=== PATIENT | male | born 1975 | race Caucasian/White ===

== ENCOUNTER 2020-09-17 17:01 | Emergency (ER) | payer OTHER, SELFPAY ==
[2020-09-17 17:12] VITALS: BP 163/86; PULSE 97; RESP 16; TEMP 37.1; O2SAT 97; BMI 34.0
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
--- NOTE | 2020-09-17 19:42 | PC.NURSE ---
PT LAC DERMABONED TOGETHER BY YURY MATTSON. PT LIDODERM returned.
== END 2020-09-17 19:52 | disposition home or self-care (01) ==
PROVIDERS: Emergency Provider Emergency Medicine
DX: S09.90XA Unspecified injury of head, initial encounter (principal); S01.81XA Laceration without foreign body of other part of head, initial encounter; W33.11XA Accidental malfunction of shotgun, initial encounter; Y93.79 Activity, other specified sports and athletics; Y92.39 Other specified sports and athletic area as the place of occurrence of the external cause; Y99.8 Other external cause status
CPT/HCPCS: 12011; 99284

== ENCOUNTER 2022-02-22 00:14 | Emergency (ER) | payer OTHER, SELFPAY ==
--- NOTE | 2022-02-22 | ECG_ITS ---
Test Reason : weakness Blood Pressure : / mmHG Vent. Rate : 087 BPM Atrial Rate : 087 BPM P-R Int : 162 ms QRS Dur : 088 ms QT Int : 358 ms P-R-T Axes : 037 039 053 degrees QTc Int : 430 ms Normal sinus rhythm Normal ECG When compared with ECG of 03-FEB-2015 21:31, Vent. rate has increased BY 30 BPM Referred By: Generic ED Physician Electronically Signed By:ADIILA DORADO MD
[2022-02-22 00:21] VITALS: BP 152/99; PULSE 86; RESP 16; TEMP 37.2; O2SAT 97; BMI 36.5
[2022-02-22 00:28] LABS: MANUAL DIFF FLAG NO
[2022-02-22 00:29] LABS: Basophils Percent Auto 0.4 % (0-2); Eosinophils Absolute Auto 0.4 X10*3/uL (0.0-0.4); Eosinophils Percent Auto 5.1 % (0-4); Hematocrit 39.4 % (42.0-52.0); Hemoglobin 13.9 g/dl (14.0-18.0); Imm Gran Abs Auto 0.03 X10*3/uL (0.00-0.03); Imm Gran Pct Auto 0.4 % (0.0-0.4); Lymphocytes Absolute Auto 2.3 X10*3/uL (1.2-4.9); Lymphocytes Percent Auto 30.7 % (20-40); Mean Corpuscular HGB Conc 35.3 g/dl (31.0-36.0); Mean Corpuscular Hemoglobin 31.3 pg (27.0-33.0); Mean Corpuscular Volume 88.7 fL (80.0-98.0); Mean Platelet Volume 9.4 fL (9.4-12.4); Monocytes Absolute Auto 0.9 X10*3/uL (0.1-1.2); Monocytes Percent Auto 12.2 % (2-11); Neutrophils Absolute Auto 3.8 x10*3/uL (2.0-8.3); Neutrophils Percent Auto 51.2 % (45-73); Platelet Count 250 X10*3/uL (160-400); Red Blood Count 4.44 X10*6/uL (4.60-5.80); White Blood Count 7.5 X10*3/uL (4.8-10.8)
[2022-02-22 00:44] LABS: Alanine Aminotransferase 45 U/L (0-40); Alkaline Phosphatase 70 U/L (39-117); Anion Gap 14 (12-20); Aspartate Amino Transferase 41 U/L (5-37); Bilirubin Total 0.5 mg/dL (0.0-1.0); Blood Urea Nitrogen 20 mg/dL (9-16); Calcium 8.7 mg/dL (8.4-10.2); Carbon Dioxide 23 mmol/L (22-29); Chloride 107 mmol/L (96-108); Creatinine Clr Calc Pharmacy 133.5; Estimated Glomerular Filt Rate > 60; Glucose Random 109 mg/dL (60-115); Potassium 3.9 mmol/L (3.3-5.1); Sodium 140 mmol/L (135-145); Total Protein 6.5 g/dL (6.5-8.0)
[2022-02-22 00:48] LABS: Troponin-I High Sensitivity 3.5 ng/L (<3.5-35.0)
[2022-02-22 02:06] VITALS: BP 136/62; PULSE 78; RESP 18; TEMP 36.4; O2SAT 95
--- NOTE | 2022-02-22 02:15 | ED.ARRPALP ---
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 used to be on Trileptal has not taken that in last 3 years last seizure was 1 ago when she was not was not taking Trileptal today in the bed patient started stating and had tremulous feeling lasted for few minutes patient remember part of it no loss of consciousness no tonic-clonic convulsion seizures no head injury patient been awake more lately in the nighttime working on his car so not able to sleep well no fall no headache Related Data Previous Rx's Medication Instructions Recorded oxcarbazepine 300 mg tablet 300 mg PO BID #180 tabs 02/22/22 (Trileptal) Allergies Allergy/AdvReac Type Severity Reaction Status Date / Time No Known Allergies Allergy Verified 09/17/20 18:38 Review of Systems Review of Systems: Yes all other systems are reviewed and are negative [facility] Social History Social History Advance Directives: No Physical Exam Vital Signs: Vital Signs: Last Vital Signs Temp 97.5 F 02/22/22 02:06 Pulse 78 02/22/22 02:06 Resp 18 02/22/22 02:06 BP 136/62 02/22/22 02:06 Pulse Ox 95 02/22/22 02:06 O2 Del Method 02/22/22 02:06 BMI result Body Mass Index 36.5 Appearance: Alert. Oriented X3. No acute distress. Eyes: PERRLA, No Nystagmus ENT: Pharynx normal. Oral Mucosa moist no tongue bite Neck: Normal inspection. Neck supple. CVS: Normal heart rate and rhythm. Pulses normal. Respiratory: No respiratory distress. Equal air entry bilateral, no wheezing/rales/rhonchi Abdomen: Soft and nontender. Bowel sounds are present, no mass palpable, no CVA tenderness Skin: Skin warm and dry. Normal skin color. Normal skin turgor. Extremities: No lower extremity edema. No calf tenderness Neuro: Oriented X 3. No motor deficit. MDM - Arrhythmia/Palpitations MDM Narrative Medical decision making narrative: Patient history of epilepsy noncompliant with medication for insurance reasons will give 1 dose of Trileptal in the ER advised to follow-up with his neurologist Lab Data Result diagrams: 02/22/22 00:24 02/22/22 00:24 Labs: Lab Results 02/22/22 02/22/22 02/22/22 Range/Units 00:24 00:24 00:24 WBC 7.5 (4.8-10.8) X10*3/uL RBC 4.44 L (4.60-5.80) X10*6/uL Hgb 13.9 L (14.0-18.0) g/dl Hct 39.4 L (42.0-52.0) % MCV 88.7 (80.0-98.0) fL MCH 31.3 (27.0-33.0) pg MCHC 35.3 (31.0-36.0) g/dl RDW 12.0 (11.0-16.0) % Plt Count 250 (160-400) X10*3/uL MPV 9.4 (9.4-12.4) fL Immature Gran % (Auto) 0.4 (0.0-0.4) % Neut % (Auto) 51.2 (45-73) % Lymph % (Auto) 30.7 (20-40) % [place] % (Auto) 12.2 H (2-11) % Eos % (Auto) 5.1 H (0-4) % Baso % (Auto) 0.4 (0-2) % Lymph # (Auto) 2.3 (1.2-4.9) X10*3/uL [place] # (Auto) 0.9 (0.1-1.2) X10*3/uL Eos # (Auto) 0.4 (0.0-0.4) X10*3/uL Baso # (Auto) 0.0 (0.0-0.2) X10*3/uL Abs Immat Gran (auto) 0.03 (0.00-0.03) X10*3/uL Absolute Neuts (auto) 3.8 (2.0-8.3) x10*3/uL Absolute Nucleated RBC 0.000 (0.0-0.012) X10*3/uL Nucleated RBC % (auto) 0.0 (0.0-0.2) /100WBC Sodium 140 (135-145) mmol/L Potassium 3.9 (3.3-5.1) mmol/L Chloride 107 (96-108) mmol/L Carbon Dioxide 23 (22-29) mmol/L Anion Gap 14 (12-20) BUN 20 H (9-16) mg/dL Creatinine 1.03 (0.5-1.4) mg/dL Estim Creat Clear Calc 133.5 Estimated GFR > 60 Random Glucose 109 (60-115) mg/dL Calcium 8.7 (8.4-10.2) mg/dL Total Bilirubin 0.5 (0.0-1.0) mg/dL AST 41 H (5-37) U/L ALT 45 H (0-40) U/L Alkaline Phosphatase 70 (39-117) U/L Troponin I High Sens 3.5 (<3.5-35.0) ng/L Total Protein 6.5 (6.5-8.0) g/dL Albumin 4.0 (3.5-5.0) g/dL Discharge Plan Discharge Clinical Impression: Seizure disorder Patient Disposition: Home, Self-Care Instructions: Epilepsy (ED) Additional Instructions: Take your seizure medication daily Follow-up with neurologist Prescriptions: New oxcarbazepine [Trileptal] 300 mg tablet 300 mg PO BID Qty: 180 2RF Referrals: Homar Rowell MD [Physician] - 1 week Interventions: ED Discharge Assessment Last Done: 02/22/22 02:50
[2022-02-22] MEDS: OXcarbazepine 300 MG TABLET PO (02:46)
== END 2022-02-22 02:51 | disposition home or self-care (01) ==
PROVIDERS: Emergency Provider Internal Medicine
DX: G40.909 Epilepsy, unspecified, not intractable, without status epilepticus (principal); R00.2 Palpitations
CPT/HCPCS: 36415; 80053; 84484; 85025; 93005; 99283; 99284

== ENCOUNTER 2023-04-28 11:25 | Emergency (ER) | payer SELFPAY ==
--- NOTE | ~2023-04-28 | US_ITS ---
EXAMINATION: US VENOUS ULTRASOUND WITH DOPPLER LOWER EXTREMITY, RIGHT CLINICAL INFORMATION: Right lower extremity swelling. COMPARISON: None available. TECHNIQUE: Ultrasound of the deep veins is performed from the hip to the calf with compression sonography and color and pulse Doppler assessment. Spectral analysis with color-flow imaging is performed. FINDINGS: There is normal venous compression and respiratory variation and augmented flow. The visualized common femoral vein, superficial femoral vein, profunda femoral vein, popliteal vein, and the trifurcation region shows no evidence of deep venous thrombosis. There is no significant popliteal fossa cyst. If the patient's symptoms persist, followup ultrasound in 5 days 7 days might be of value to exclude proximal propagation from a non-visualized calf vein. The left common femoral vein is patent. US/US venous duplex LE RT IMPRESSION: No DVT demonstrated in the right lower extremity.
--- NOTE | ~2023-04-28 | XR_ITS ---
EXAMINATION: XR HIP, RIGHT CLINICAL INFORMATION: Right knee pain COMPARISON: None available. TECHNIQUE: Two views of the right hip. AP pelvis one view FINDINGS: There is normal symmetry of bilateral hip joints and SI joints. No iliac or ischial bony abnormality seen. The soft tissues are normal. AP and frog-leg views right hip reveals no visible fracture or dislocation. The joint space is maintained normal. No bony erosive changes. The soft tissues are normal. XR/XR hip RT w PEL1V IMPRESSION: Unremarkable AP pelvis and right hip exam. No acute fracture or dislocation right hip.
[2023-04-28 11:27] VITALS: BP 156/88; PULSE 84; RESP 18; TEMP 36.2; O2SAT 97; BMI 38.4
--- NOTE | 2023-04-28 15:26 | ED.LOWEXIN ---
HPI - Extremity Injury (Lower) General Chief Complaint: Extremity Injury, Lower Stated Complaint: R LEG/HIP PAIN Time Seen by Provider: 04/28/23 14:58 Source: patient and family (partner) Mode of arrival: ambulatory Limitations: no limitations History of Present Illness HPI Narrative: 47 year old male with no significant pmhx presents to the emergency department today with a complaint of right knee and hip pain upon waking up 3 days ago. States that over the last 3 days his right hip pain has worsened, now radiates down his right leg when bearing weight on his right leg. Additionally admits to pain behind his right knee. Is unsure if it is knee pain causing hip pain or hip pain causing knee pain. Denies injury trauma or fall. Reports taking [id number] pain medication yesterday without relief of pain. Has never had symptoms like this in the past. 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 Denies taking anything prior to arrival in ED. Denies fever, chills, cough, hemoptysis, nausea or vomiting, back pain, numbness/tingling/weakness down the extremity, bowel or bladder incontinence or retention, saddle anesthesia. Denies recent travel or long car rides. Related Data Previous Rx's Medication Instructions Recorded oxcarbazepine 300 mg tablet 300 mg PO BID #180 tabs 02/22/22 (Trileptal) lidocaine 5 % topical patch 1 patch topical DAILY #15 ea 04/28/23 (Lidoderm) naproxen 500 mg tablet 500 mg PO Q8-12H PRN pain #20 tabs 04/28/23 prednisone 50 mg tablet 50 mg PO DAILY 5 days #5 tabs 04/28/23 Allergies Allergy/AdvReac Type Severity Reaction Status Date / Time No Known Allergies Allergy Verified 04/28/23 11:27 Review of Systems Review of Systems: Constitutional: No fever, chills, fatigue, night sweats, weight changes ENT/Mouth: No ear pain, hearing loss, nasal congestion, sinus pain, rhinorrhea, sore throat Eyes: No eye pain, swelling, redness, vision changes, discharge Cardio: No chest pain, palpitations, SAM[place]ON, orthopnea, peripheral edema Pulm: No SOB, cough, sputum, wheezing, dyspnea, hemoptysis GI: No nausea, vomiting, hematemesis, abdominal pain, diarrhea, constipation, hematochezia, melena : No irregular bleeding, dysuria, frequency, urgency, hesitancy, hematuria, flank pain, urinary flow changes, urinary incontinence or retention MSK: No back pain, neck pain, joint pain, myalgias, +right hip and knee pain Skin: No lesions, rashes Neuro: No weakness, numbness, paresthesias, LOC, dizziness, headache All other systems reviewed and are negative. [facility] Past Medical History Attestation statement: The following information was validated with the patient. Source: old records reviewed and nursing notes reviewed Social History Social History Advance Directives: No Advance Directives Information Provided: No Physical Exam Vital Signs: Vital Signs: Last Vital Signs Temp 97.2 F 04/28/23 11:27 Pulse 84 04/28/23 11:27 Resp 18 04/28/23 11:27 BP 156/88 H 04/28/23 11:27 Pulse Ox 97 04/28/23 11:27 O2 Del Method Room Air 04/28/23 11:27 BMI result Body Mass Index 38.4 Vital signs stable, afebrile Const: General: cooperative, healthy appearing, comfortable, no acute distress, alert and awake Nutritional Appearance: overweight Orientation/consciousness: patient oriented x3 Limitations: no limitations HEENT: Head: Yes normal to inspection Ears: hearing grossly normal bilaterally Eyes: General: appearance normal, both eyes and all related structures Conjunctivae: conjunctivae normal Sclerae: sclerae normal Pupils: Equal, round and reactive pupils present Neck: Neck: Yes normal visual inspection, Yes full ROM, Yes no lymphadenopathy and Yes no JVD Resp: Effort & Inspection: normal respiratory effort Auscultation: clear to auscultation bilaterally Cardio: Other: + 2+ popliteal, DP/PT pulses bilaterally. Rate: regular rate Rhythm: regular rhythm GI: Inspection: Yes normal to inspection and Yes obesity Palpation (GI): Soft to palpation and nontender : General: Yes no CVA tenderness Back/Spine/Pelvis: Other: No midline spinous tenderness. No paraspinal muscle tenderness. No step off deformity. Back: no CVA tenderness Skin: General skin exam: no rashes or lesions noted Neuro: General: patient oriented x3, gait normal and moves all extremities Cranial nerves: Yes Equal, round and reactive pupils present Extrem: Other: + no overlying skin changes, edema, or deformity to right hip. ROM intact to right hip. No pain with internal-external rotation of right hip. No tenderness to palpation of the iliac crest or SI joint. + no overlying skin changes, edema, or deformity to right knee. full ROM intact to right knee. No pain with flexion or extension of right knee. No palpable deformity, mass or fluctuance. + negative saundra sign bilaterally General: Yes normal to inspection and Yes full ROM Course Course Course Narrative: X-ray right hip/pelvis unremarkable. Awaiting ultrasound. 1950-- ultrasound of right lower extremity does not demonstrate clot or popliteal cyst. Patient's symptoms are likely musculoskeletal in nature. ?sprain/strain vs bursitis. Ambulating with steady gait in the ED. > informed patient of workup results. Will apply Nick wrap to right knee. Will send prednisone, naproxen and lidocaine patches to patient's pharmacy. As patient is uninsured, he has been provided with good Rx cards for medication cost. Patient has remained stable throughout ED visit today. Discussed strict return precautions. All questions answered at this time. Patient is agreeable with disposition and stable for discharge. Medications Administered Discontinued Medications Generic Name Dose Route Start Last Admin Trade Name Freq PRN Reason Stop Dose Admin Cyclobenzaprine HCl 10 mg 04/28/23 17:36 04/28/23 17:55 Cyclobenzaprine Hcl 10 Mg Tablet PO 04/28/23 17:37 10 mg ONCE ONE Administration Diazepam 5 mg 04/28/23 15:34 04/28/23 15:47 Diazepam 2 Mg Tablet PO 04/28/23 15:35 5 mg ONCE ONE Administration Ketorolac Tromethamine 60 mg 04/28/23 15:34 04/28/23 15:49 Ketorolac Tromethamine 60 Mg/2 Ml Vial IM 04/28/23 15:35 60 mg ONCE ONE Administration Lidocaine 1 patch 04/28/23 15:34 04/28/23 15:47 Lidocaine 4 % Patch Adh..Patch TRANSDERMA 04/28/23 15:35 1 patch ONCE ONE Administration Protocol Medical Decision Making Medical Decision Making MDM Narrative: 47 year old male with no significant pmhx presents to the emergency department today with a complaint of right knee and hip pain upon waking up 3 days ago. Vital signs stable. Patient is nontoxic appearing and in no acute distress. Ambulating with steady gait. On exam, no overlying skin changes, edema, or deformity to right hip. ROM intact to right hip. No pain with internal-external rotation of right hip. No tenderness to palpation of the iliac crest or SI joint. no overlying skin changes, edema, or deformity to right knee. full ROM intact to right knee. No pain with flexion or extension of right knee. No palpable deformity, mass or fluctuance. negative saundra sign bilaterally. No midline spinous tenderness or step-off deformity. No paraspinal muscle tenderness bilaterally. 2+ popliteal, DP/PT pulses bilaterally. Clinical concern for MSK sprain/strain, fracture, dislocation, bursitis, Rodriguez cyst, DVT. Unlikely AVN, sciatica, disc herniation, cauda equina, cord compression, epidural abscess. Plan for x-ray, ultrasound pain control. Differential Diagnosis Differential Diagnoses: The differential diagnosis associated with the presentation includes as above Admission/Observation Not indicated. Independent Interpretation I performed an independent interpretation of an: Plain X-Ray and Ultrasound Interpretation: X-ray right hip/pelvis without acute fracture or dislocation, agree with radiologist's interpretation. Ultrasound right lower extremity does not demonstrate a popliteal cyst, agree with radiologist's interpretation. Radiology Impression Discussion of test interpretation with radiology: I have reviewed the radiologist's reading. Radiologist Impression: XR hip RT w PEL1V IMPRESSION: Unremarkable AP pelvis and right hip exam. No acute fracture or dislocation right hip. US venous duplex LE RT IMPRESSION: No DVT demonstrated in the right lower extremity. Independent Historian Clinical information obtained from an independent historian. History obtained from or confirmed by: Spouse External Record Review External record reviewed: Inpatient record Prescription Management I considered prescription management with: Pain Medication and Other (steroid) Social Determinants Patient?s care significantly limited by Social Determinants of Health including: Low income and Other Social Determinant of Health Procedures Orthopedic Splinting/Casting Injury #1: Side: right Lower Extremity Injury Location: knee Lower Extremity Immobilizer: Nick wrap Critical Care Time Critical Care Time Critical Care Time: No Discharge Plan Discharge Clinical Impression: Acute knee pain Patient Disposition: Home, Self-Care Instructions: Knee Pain (ED), R.I.C.E. Treatment (ED), Heat Pack Application (ED), Warm Compress or Soak (ED) Additional Instructions: The x-ray of your right hip/pelvis was normal. The ultrasound of your right leg did not demonstrate clot or cyst. Your right knee was wrapped with an Nick wrap today. Keep your knee wrapped as the compression helps with pain/swelling. Prednisone as a steroid that has been sent to your pharmacy. Take this as directed over the next 5 days. Naproxen has been sent to your pharmacy. Take this as needed for pain. Do not take this with other NSAIDs such as ibuprofen as it may increase the risk of GI bleeding. Lidocaine patches have been sent to your pharmacy. Apply these to painful areas as needed for pain relief. You may apply 1 every 12 hours. Please follow-up with your primary care provider. If you do not have one, a referral has been provided to you. You may call them to establish care. If symptoms persist or worsen please return to the emergency department. The case of an emergency call 911. Prescriptions: New lidocaine [Lidoderm] 5 % adhesive patch,medicated 1 patch topical DAILY Qty: 15 0RF Rx Instructions: leave on most painful area for up to 12 hrs naproxen 500 mg tablet 500 mg PO Q8-12H PRN (Reason: pain) Qty: 20 0RF prednisone 50 mg tablet 50 mg PO DAILY 5 Days Qty: 5 0RF No Action oxcarbazepine [Trileptal] 300 mg tablet 300 mg PO BID Qty: 180 2RF Referrals: [facility] [place] [facility] [Provider Group] [facility] [place] [facility]] Physician,Unknown J [Primary Care Provider] - Stand Alone Forms: Work/School Release
[2023-04-28] MEDS: Lidocaine 4 % Patch ADH..PATCH 1 PATCH TRANSDERMA (15:47)
[2023-04-28] MEDS: diazePAM 2 MG TABLET 5 MG PO (15:47)
[2023-04-28] MEDS: Ketorolac Tromethamine 60 MG/2 ML VIAL IM (15:49)
[2023-04-28] MEDS: Cyclobenzaprine HCl 10 MG TABLET PO (17:55)
[2023-04-28 20:02] VITALS: PULSE 84; RESP 18; TEMP 37.1; O2SAT 98
== END 2023-04-28 20:03 | disposition home or self-care (01) ==
PROVIDERS: Emergency Provider Emergency Medicine
DX: M25.561 Pain in right knee (principal); M25.551 Pain in right hip; M79.604 Pain in right leg
CPT/HCPCS: 73502; 93971; 96372; 99284; J1885